=== PATIENT | female | born 1955 | race Caucasian/White ===

== ENCOUNTER 2024-12-30 10:43 | Emergency (ER) | payer OTHER, SELFPAY ==
[2024-12-30] VITALS (10 sets, daily range): BP systolic 132–181; BP diastolic 75–104; PULSE 53–63; BMI 21.3
--- NOTE | 2024-12-30 11:49 | ED.GENMED ---
History of Present Illness
<Judy Johnson PERFORMANCE IMPROVEMENT MANAGER - Last Filed: 12/31/24 15:19>
General
Chief Complaint: Dizziness
Source: patient
Exam Limitations: none
Time Seen by Provider: 12/30/24 11:48
Nursing documentation reviewed up to this point in time: agreed with
History of Present Illness
History of Present Illness:
69-year-old female with history of GERD, anxiety presents stating she felt palpitations yesterday, none today but she has been feeling lightheaded, shaky, her arms feel heavy, she has had a lot of indigestion and belching the past couple of days,
she took Pepcid and Tums with some relief. She states 'my head feels heavy and my neck is stiff.' She denies any recent trauma. She denies chest pain or trouble breathing. She denies N/V/D/C. Denies UTI symptoms. Denies fever or chills. She
does state that she is an anxious type person and has felt anxious about her 's been losing weight (meaningfully) although he has been checked out medically and there is no obvious problem, she is anxious about an upcoming colonoscopy because
last time she had a colonoscopy she woke up with a hoarse throat and 'I couldn't talk,' and she is wondering if 'they did something' that she does not know about like 'an endoscopy instead of a colonoscopy' which was denied.
She and daughter at bedside agree there is no other significant stress.
Past History
<Judy Johnson, PERFORMANCE IMPROVEMENT MANAGER - Last Filed: 12/31/24 15:19>
Past History
ED Past Medical History: GERD
ED Past Surgical History: Other (Varicose vein surgery)
Patient has exhibited threatening behavior?: No
PSI?: No
Social History
Tobacco: Non-smoker
Alcohol: Occasional
Family History
Family History: CAD
Review of Systems
<Judy Johnson, PERFORMANCE IMPROVEMENT MANAGER - Last Filed: 12/31/24 15:19>
Review of Systems
Allergies reviewed?: Yes
All Other Systems: ROS reviewed and negative except as documented in HPI and ROS
Constitutional: Reports other (lightheaded, head feels 'heavy'); Denies fever or chills
Respiratory: Denies trouble breathing
Cardiac: Denies chest pain
ABD/GI: Reports other (Indigestion and belching); Denies abdominal pain, nausea, vomiting, diarrhea, constipated, bloody stools, black stools or anorexia
: Denies dysuria, frequency or difficulty voiding
Musculoskeletal: Reports no symptoms
Skin: Reports no symptoms
Neurological: Denies dizzy, headache, weakness or numbness
Psychiatric: Reports anxiety (She stopped her Duloxetine on her own a year ago.)
Phy Exam
<Judy Johnson, PERFORMANCE IMPROVEMENT MANAGER - Last Filed: 12/31/24 15:19>
Physical Exam
Physical Exam:
GENERAL: No acute distress. A&Ox3.
CONSTITUTIONAL: Afebrile.
EYES: clear, conjunctivae normal
ENMT: moist mucus membranes, Pharynx nl
RESPIRATORY: Regular respirations, nonlabored, lungs clear.
CARDIOVASCULAR: Regular rate and rhythm, no murmurs, no rubs.
GI: Soft, nontender, normal BS
MUSCULOSKELETAL: Moves with ease. Well perfused.
SKIN: Warm, dry, pink
PSYCH: mildly anxious mood and affect. Well kept, interactive and appropriate
NEUROLOGIC: Awake, alert and oriented. No focal neurological deficits
Course
<Judy Johnson, PERFORMANCE IMPROVEMENT MANAGER - Last Filed: 12/31/24 15:19>
Orders/Labs/Results
Orders:
Orders
12/30/24 10:44
ECG [Electrocardiogram (*1)] Urgent
Reason for Study: Vertigo / Dizzy
EKG- Treatment ONCE
12/30/24 12:15
Comprehensive Metabolic Panel Urgent
TSH Reflex To Free T4 Urgent
12/30/24 12:16
Complete Blood Count/With Diff Urgent
Troponin I Urgent
12/30/24 15:08
CT Head W/o Iv Contrast Urgent
Comment:
Reason For Exam: dizzy
Visual Acuity- Treatment ONCE
Abnormal Lab Results
12/30/24 12/30/24
12:15 12:16
MCH 32.1 H pg
(27.0-31.0)
MPV 10.9 H fL
(7.4-10.4)
Lymphocytes % 18.3 L %
(20.5-51.1)
Calcium 10.5 H mg/dl
(8.4-10.2)
12/30/24 12:16
12/30/24 12:15
Vital Signs
Initial and Last Documented VS:
Initial Vital Signs
Temp Pulse Resp BP Pulse Ox
97.8 F 65 18 181/104 98
12/30/24 10:46 12/30/24 10:46 12/30/24 10:46 12/30/24 10:46 12/30/24 10:46
Last Documented Vital Signs
Temp Pulse Resp BP Pulse Ox
97.8 F 56 14 132/84 96
12/30/24 10:46 12/30/24 16:15 12/30/24 16:15 12/30/24 16:00 12/30/24 14:15
Continuity Clerk consulted with Physician
Continuity Clerk consulted with physician?: Yes
Name of Physician Consulted: Jeevan
<Eliana Chew MD - Last Filed: 12/30/24 15:11>
Orders/Labs/Results
Orders:
Orders
12/30/24 10:44
ECG [Electrocardiogram (*1)] Urgent
Reason for Study: Vertigo / Dizzy
EKG- Treatment ONCE
12/30/24 12:15
Comprehensive Metabolic Panel Urgent
TSH Reflex To Free T4 Urgent
12/30/24 12:16
Complete Blood Count/With Diff Urgent
Troponin I Urgent
12/30/24 15:08
CT Head W/o Iv Contrast Urgent
Comment:
Reason For Exam: dizzy
Visual Acuity- Treatment ONCE
Abnormal Lab Results
12/30/24 12/30/24
12:15 12:16
MCH 32.1 H pg
(27.0-31.0)
MPV 10.9 H fL
(7.4-10.4)
Lymphocytes % 18.3 L %
(20.5-51.1)
Calcium 10.5 H mg/dl
(8.4-10.2)
12/30/24 12:16
12/30/24 12:15
Vital Signs
Initial and Last Documented VS:
Initial Vital Signs
Temp Pulse Resp BP Pulse Ox
97.8 F 65 18 181/104 98
12/30/24 10:46 12/30/24 10:46 12/30/24 10:46 12/30/24 10:46 12/30/24 10:46
Last Documented Vital Signs
Temp Pulse Resp BP Pulse Ox
97.8 F 56 14 132/84 96
12/30/24 10:46 12/30/24 16:15 12/30/24 16:15 12/30/24 16:00 12/30/24 14:15
<Judy Johnson, PERFORMANCE IMPROVEMENT MANAGER - Last Filed: 12/31/24 15:19>
MDM/Problems Addressed
Differential Diagnosis Includes:
anxiety/stress, GERD, UT,
MDM/Problems Addressed:
69-year-old female with history of GERD, anxiety presents stating she felt palpitations yesterday, none today but she has been feeling lightheaded, shaky, her arms feel heavy, she has had a lot of indigestion and belching the past couple of days,
she took Pepcid and Tums with some relief. She states 'my head feels heavy and my neck is stiff.' She denies any recent trauma. She denies chest pain or trouble breathing. She denies N/V/D/C. Denies UTI symptoms. Denies fever or chills. She
does state that she is an anxious type person and has felt anxious about her 's been losing weight (meaningfully) although he has been checked out medically and there is no obvious problem, she is anxious about an upcoming colonoscopy because
last time she had a colonoscopy she woke up with a hoarse throat and 'I couldn't talk,' and she is wondering if 'they did something' that she does not know about like 'an endoscopy instead of a colonoscopy' which was denied.
She and daughter at bedside agree there is no other significant stress.
She stopped her Duloxetine on her own a year ago.
1:00 PM:
CBC normal
CMP normal
Troponin normal
TSH: normal
Orthostatics neg
4:[address] scan
Head CT normal. Patient stable for discharge
Chronic conditions affecting care: Psychiatric illness (anxiety)
<Judy Johnson PERFORMANCE IMPROVEMENT MANAGER - Last Filed: 12/31/24 15:19>
*Critical Care Note
Total Time (30-74mins, 75-104mins- exclusive of procedures): Not Applicable
ED Attending Note
<Judy Johnson PERFORMANCE IMPROVEMENT MANAGER - Last Filed: 12/31/24 15:19>
-
Portions of this chart may have been created with voice recognition software.� Occasional wrong word or��sound alike� substitutions may have occurred due to the inherent limitations of voice recognition software.
<Eliana Chew MD - Last Filed: 12/30/24 15:11>
ED Attending Note
Patient seen and examined by attending physician: Yes
I performed the substantive portion of visit, reviewed & personally made and approve the management plan that is documented in note by myself or JENNIFER.: Yes
ED Attending Note:
69-year-old female presents emergency department with complaints of feeling 'off' describes episodes of palpitations, feeling shaky, lightheaded and just 'weird'. She specifically describes this is not consistent with vertigo or sense of spinning
which she has had in the past. She denies headache, neck pain, recent trauma, chiropractor manipulation, fever, chills, chest pain, shortness of breath, abdominal pain. On exam, neurologically intact, no nystagmus, EOMI, no photophobia,
[id number] normal, motor 5-5, sensory intact. ECG unremarkable. Labs generally unremarkable. Low suspicion for stroke, dissection, etc. given reassuring exam and lack of high risk factors. Will check CT head.
Discharge Plan
Departure
Patient Disposition: Home (Routine Discharge)
Date of Disposition: 12/30/24
Time of Disposition: 16:37
Patient with high blood pressure during this ER visit?: No
Condition: Good
Discharge Problem:
Light-headed feeling, GERD (gastroesophageal reflux disease)
Instructions: Acid reflux and GERD in adults, Seasonal Allergies ED
Prescriptions:
No Action
omeprazole 40 MG capsule,delayed release(DR/EC)
40 mg PO DAILY
Patient Comments:
STATES SHE DOESN'T TAKE.
ranitidine HCl [Zantac 75] 75 MG tablet
75 mg PO DAILYPRN PRN (Reason: acid reflux)
Patient Comments:
STATES SHE DOESN'T TAKE
Colon Cleanse Herbal Supplemen
1 dose PO DAILY
duloxetine 30 mg capsule,delayed release(DR/EC)
30 mg PO DAILY Qty: 20 1RF
Referrals:
Michael Chino MD [Family Provider] - Call in 1-3 days for appt
Activity Restrictions/Additional Instructions:
As we discussed, there is nothing worrisome in your workup here today.
Your lightheadedness may be due to seasonal allergies.
Try Claritin or Zyrtec [id number] for the next 2 weeks and see if it helps
The increasing belching and relief you got from TUMS and Pepcid may be from GERD.
Continue the Pepcid since it helped.
See your doctor in 7-10 days if not
Interventions
Interventions:
*Risk Screen - Suicide Last Done: 12/30/24 10:46
*General Assessment Last Done: 12/30/24 10:46
*Neglect/Abuse Screening Last Done: 12/30/24 10:46
*ED- Fall Risk Assessment Last Done: 12/30/24 11:59
*ED COVID-19 Vaccine History Last Done: 12/30/24 11:59
*Nursing Disposition Last Done: 12/30/24 17:20
ED- Neurological Assessment Last Done: 12/30/24 11:56
ED- Cardiac Assessment Last Done: 12/30/24 11:56
Discharge Date and Time
Discharge Date/Time: 12/30/24 17:20
Print Language: WALLISIAN
[2024-12-30 12:28] LABS: % Basophils 0.6 % (0-2); % Eosinophils 0.6 % (0-6); % Immature Granulocytes 0.2 % (0-0.5); % Lymphocytes 18.3 % (20.5-51.1); % Monocytes 8.3 % (1.7-9.3); Absolute Lymphocytes 1.2 10^3/uL (1.2-3.4); Absolute Monocytes 0.5 10^3/uL (0.1-0.6); Absolute Neutrophils 4.5 10^3/uL (1.4-6.5); Hematocrit 41.5 % (37.0-47.0); Hemoglobin 14.4 g/dL (12.0-16.0); Mean Corp Hgb Conc. 34.7 g/dL (33.0-37.0); Mean Corpuscular Hgb 32.1 pg (27.0-31.0); Mean Corpuscular Volume 92.4 fL (81.0-99.0); Mean Platelet Volume 10.9 fL (7.4-10.4); Nucleated Red Blood Cells % 0 %; Platelet Count 212 10^3/uL (130-400); Red Blood Cell Count 4.49 10^6/uL (4.20-5.40); Red Cell Dist. Width 13.1 % (11.5-14.5); White Blood Cell Count 6.3 10^3/uL (4.8-10.8)
[2024-12-30 12:45] LABS: ALT (SGPT) 16 U/L (0-35); AST (SGOT) 26 U/L (14-36); Albumin 4.5 g/dl (3.5-5.0); Alkaline Phosphatase 67 U/L (38-126); Blood Urea Nitrogen 14 mg/dl (7-17); Calcium 10.5 mg/dl (8.4-10.2); Carbon Dioxide 26 mmol/L (22-30); Chloride 102 mmol/L (98-107); Estimated Creatinine Clearance 67 ml/min; Glucose 99 mg/dl (70-99); Potassium 4.1 mmol/L (3.5-5.1); Sodium 138 mmol/L (135-145); Total Bilirubin 1.1 mg/dl (0.2-1.3); Total Protein 7.1 g/dl (6.3-8.2); eGFR > 60.00
[2024-12-30 12:55] LABS: Troponin I < 0.012 ng/ml
[2024-12-30 13:18] LABS: TSH Reflex To Free T4 0.48 uIU/ml (0.47-4.68)
== END 2024-12-30 17:20 | disposition home or self-care (01) ==
LOC: EMR 10:43
PROVIDERS: Registered Nurse; EMERGENCY PHYSICIAN Emergency Medicine; FAMILY PHYSICIAN Internal Medicine
DX: R42 Dizziness and giddiness (principal); K21.9 Gastro-esophageal reflux disease without esophagitis; R00.2 Palpitations
CPT/HCPCS: 99284; 70450; 80053; 84443; 84484; 85025; 93005